=== PATIENT | female | born 1995 | race Caucasian/White ===

== ENCOUNTER 2022-05-19 12:17 | Emergency (ER) | payer OTHER, SELFPAY ==
[2022-05-19 12:47] VITALS: BP 127/73; PULSE 102; RESP 16; TEMP 37.2; O2SAT 98; BMI 27.4
[2022-05-19 15:49] VITALS: BP 113/65; PULSE 76; RESP 20; O2SAT 97
[2022-05-19 18:13] VITALS: BP 128/73; PULSE 69; RESP 20; O2SAT 98
--- NOTE | 2022-05-24 09:51 | ED.DIZZY ---
HPI - Dizziness General Chief Complaint: Dizziness Stated Complaint: Feeling faint, Left ABD pressure Time Seen by Provider: 05/19/22 12:29 Source: patient Mode of arrival: Ambulatory History of Present Illness HPI Narrative: 27-year-old female presenting with lightheadedness, left upper abdominal discomfort/pressure, and generalized malaise. Patient reports 2 episodes of feeling lightheaded and becoming near syncopal, however, patient did not lose consciousness. Symptoms have occurred over the last 2 days. No chest pain or shortness of breath, no lower abdominal pain. No known cardiac disease. No recent fevers. Related Data Allergies Allergy/AdvReac Type Severity Reaction Status Date / Time No Known Drug Allergies Allergy Verified 05/19/22 12:51 Patient History Social History Smoking Status: Never smoker Smoking Status: Never smoker alcohol intake frequency: 0-2 drinks per day Substance Use Type: marijuana Exam Narrative Exam Narrative: Vitals reviewed. Nursing note reviewed Constitutional: interactive HENT: Moist mucous membranes EYES: No scleral icterus NECK: no masses CV: Well perfused peripherally, no cyanosis present PULM: Unlabored respirations, symmetric chest rise ABD: Non-distended MS: No gross deformities, no asymmetric edema noted SKIN: Warm and dry. PSYCH: Appropriate affect NEURO: Follows simple commands, moves extremities, interactive with exam Initial Vital Signs Initial Vital Signs: Vital Signs Temperature 99.0 F 05/19/22 12:47 Pulse Rate 102 H 05/19/22 12:47 Respiratory Rate 16 05/19/22 12:47 Blood Pressure 127/73 05/19/22 12:47 Pulse Oximetry 98 05/19/22 12:47 Oxygen Delivery Method Room Air 05/19/22 12:47 MDM - Dizziness Lab Data Labs: Point of Care Testing Test Results Negative Urine Dip Bedside Urine Glucose Negative Bedside Urine Bilirubin - Negative Bedside Urine Ketone - Negative Urine Specific [place] 1.015 Bedside Urine Occult Blood - Negative Bedside Urine pH 8.0 Bedside Urine Protein - Negative Bedside Urine Urobilinogen - Negative Bedside Urine Nitrite - Negative Bedside Urine Leukocytes - Negative Esterase MDM Narrative Medical decision making narrative: 27-year-old female presenting with lightheadedness and without loss of consciousness, intermittent left upper abdominal pressure. On presentation, vital signs reassuring. Physical exam notable for a well-appearing 27-year-old female in no acute distress, no active symptoms on presentation to the emergency department. Patient with reassuring cardiopulmonary and neurologic exam. Initial concern for primary cardiac arrhythmia, dehydration, infectious etiology, electrolyte derangement, pulmonary embolism. Patient is well-appearing on presentation, no episodes of syncope or concerning features to suggest a primary cardiac arrhythmia. EKG without evidence of acute ischemia or significant arrhythmia on my interpretation. Given patient without known medical problems, patient well-appearing, no chest pain, shortness of breath, tachypnea, or hypoxemia, further evaluation for PE was deferred. Patient without fevers to suggest infectious etiology. Patient does not appear to be clinically dehydrated while in the emergency department. Discussed overall reassuring exam, plan for discharge and close outpatient follow up with patient's primary care provider. Return precautions were discussed. Discharge Plan Departure Patient Disposition: Home Clinical Impression: Near syncope Instructions: DI for Syncope in Adults (Fainting) Activity Restrictions/Additional Instructions: *You have been diagnosed with near syncope. *What to do: *Please follow up with your primary care provider in 2-3 days, call for an appointment. Let them know you were seen in the Emergency Department and that we ask that you be seen in follow up. We will electronically transmit a record of today's note if your PCP is in our system *If you do not have a primary care provider please contact the [facility] Resource line at [phone]. They will ask some questions about your medical history and help get you set up with a doctor in the community. *Return to Emergency Department if you should have any new, worsening or concerning symptoms, such as [fever greater than 101 F, shaking chills, worsening pain, persistent vomiting or other bothersome symptoms] Stand Alone Forms: Patient Portal/API
== END 2022-05-19 18:15 | disposition home or self-care (01) ==
PROVIDERS: Emergency Provider Emergency Medicine
DX: R55 Syncope and collapse (principal); R07.9 Chest pain, unspecified
CPT/HCPCS: 81003; 81025; 93005; 99282; 99283

== ENCOUNTER 2022-06-10 07:44 | Emergency (ER) | payer OTHER, SELFPAY ==
[2022-06-10] VITALS (11 sets, daily range): BP systolic 101–137; BP diastolic 55–73; PULSE 63–92; RESP 18–23; TEMP 36.8; O2SAT 98–100; BMI 26.6
--- NOTE | 2022-06-10 09:35 | ED.ABDPAIN ---
HPI - Abdominal Pain General Chief Complaint: Abdominal Pain Stated Complaint: ABD pain T-21 Time Seen by Provider: 06/10/22 09:08 Source: family Mode of arrival: Ambulatory History of Present Illness HPI narrative: Patient is a 27-year-old female who presents with ongoing abdominal issues. She was seen and evaluated here May 24 for near syncopal episode. At that time she reports that she ate a lot of vitamin she had pressure in her left upper abdomen with a near syncopal episode. She reports that her stomach just does not feel quite right, she keeps having pain and cramping move all over she reports that her bowel movements are necessarily normal but she had 1 yesterday. She is no nausea vomiting. She is eating drinking fine. No chest pain palpitations shortness of breath or other symptoms. Related Data Allergies Allergy/AdvReac Type Severity Reaction Status Date / Time No Known Drug Allergies Allergy Verified 05/19/22 12:51 Review of Systems Review of Systems ROS Unobtainable: All systems reviewed & are unremarkable except as noted in HPI and below Patient History Social History Smoking Status: Never smoker Smoking Status: Never smoker alcohol intake frequency: holidays/special occasions only Substance Use Type: marijuana Exam Initial Vital Signs Initial Vital Signs: Vital Signs Temperature 98.3 F 06/10/22 08:00 Pulse Rate 79 06/10/22 08:00 Respiratory Rate 18 06/10/22 08:00 Blood Pressure 132/73 06/10/22 08:00 Pulse Oximetry 100 06/10/22 08:00 Oxygen Delivery Method Room Air 06/10/22 08:00 GENERAL: Alert well-appearing 27-year-old female no acute distress and in no acute distress. HEENT: Head atraumatic,EOMI, pupils reactive, face symmetric, moist mucous membranes CARDIOVASCULAR: Regular rate and rhythm without murmurs, rubs or gallops. RESPIRATORY: Breath sounds equal bilaterally, no wheezes rales or rhonchi. ABDOMEN: Soft, nontender. Normoactive bowel sounds all 4 quadrants. No guarding or rebound. Negative Larsen's sign no distention EXTREMITIES: Normal range of motion, no clubbing or edema. Neurovascularly intact NEUROLOGICAL: Alert and oriented x4. SKIN: Warm, dry, no laceration, no petechiae, no rashes or lesions. Course Orders Ordered: ED Orders 06/10/22 09:30 Complete Blood Count AUTO DIFF Stat Comprehensive Metabolic Panel Stat Lipase Stat 06/10/22 09:38 Test Urine Stat Urine Microscopic Stat 06/10/22 09:52 CT abdomen pelvis w con Stat Discontinued Medications Ondansetron HCl (Ondansetron 4 Mg Odt) 4 mg PO NOW PRN PRN Reason: Nausea And Vomiting Ondansetron HCl (Ondansetron 4 Mg/2 Ml Inj) 4 mg IV NOW PRN PRN Reason: Nausea And Vomiting Vital Signs Vital signs: Vital Signs - 8 hr 06/10/22 08:00 06/10/22 09:28 06/10/22 09:30 Temperature 98.3 F Pulse Rate 79 84 92 H Respiratory Rate 18 Blood Pressure 132/73 Pulse Oximetry 100 99 100 Oxygen Delivery Method Room Air 06/10/22 10:00 06/10/22 10:30 06/10/22 10:40 Temperature Pulse Rate 78 64 80 Respiratory Rate 18 Blood Pressure 119/69 Pulse Oximetry 99 99 99 Oxygen Delivery Method 06/10/22 10:40 06/10/22 11:00 06/10/22 11:00 Temperature Pulse Rate 84 Respiratory Rate Blood Pressure 119/69 118/65 Pulse Oximetry 98 Oxygen Delivery Method Room Air 06/10/22 11:30 06/10/22 11:30 06/10/22 11:57 Temperature Pulse Rate 63 Respiratory Rate 23 Blood Pressure 101/55 L 137/72 Pulse Oximetry 99 Oxygen Delivery Method 06/10/22 11:57 06/10/22 12:00 06/10/22 12:00 Temperature Pulse Rate 75 88 Respiratory Rate Blood Pressure 107/58 L Pulse Oximetry 99 100 Oxygen Delivery Method 06/10/22 12:30 06/10/22 12:30 Temperature Pulse Rate 86 Respiratory Rate 20 Blood Pressure 108/71 Pulse Oximetry 100 Oxygen Delivery Method Room Air MDM - Abdominal Pain Lab Data 06/10/22 09:30 06/10/22 09:30 Labs: Lab Results 06/10/22 06/10/22 06/10/22 Range/Units 09:30 09:30 09:38 WBC 6.3 (4.5-11.0) X10^3/uL RBC 4.31 (4.0-5.2) X10^6/uL Hgb 12.6 (12.0-16.0) g/dL Hct 37.3 (36-46) % MCV 86.5 (80-100) fL MCH 29.3 (26-34) PG MCHC 33.9 (30-36) % RDW 12.8 (11.6-14.8) % Plt Count 222 (150-400) X10^3/uL Neut % (Auto) 57.3 (50-75) % Lymph % (Auto) 28.9 (25-40) % [place] % (Auto) 12.5 (3-14) % Eos % (Auto) 0.7 L (2-4) % Baso % (Auto) 0.6 (0-2) % Neut # (Auto) 3600 (1738-9836) /uL Lymph # (Auto) 1800 (9316-5668) /uL [place] # (Auto) 800 (0-900) /uL Eos # (Auto) 0 (0-450) /uL Baso # (Auto) 0 (0-100) /uL Sodium 139 (137-145) mmol/L Potassium 3.6 (3.4-5.1) mmol/L Chloride 103 (98-107) mmol/L Carbon Dioxide 25 (22-32) mmol/L BUN 5 L (7-17) mg/dL Creatinine 0.56 (0.52-1.04) mg/dL Estimated GFR > 60 (>60) mL/min BUN/Creatinine Ratio 8.9 (6-22) Glucose 80 (70-100) mg/dL Calcium 9.3 (8.4-10.2) mg/dL Total Bilirubin 1.1 (0.2-1.3) mg/dL AST 20 (14-36) IU/L ALT 16 (<35) IU/L Alkaline Phosphatase 54 (38-126) U/L Total Protein 8.3 H (6.3-8.2) g/dL Albumin 4.7 (3.5-5.0) g/dL Globulin 3.6 (1.7-4.1) g/dL Albumin/Globulin Ratio 1.3 (1.0-2.8) Lipase 60 (23-300) U/L Urine RBC (0-5/HPF) Urine WBC (0-5/HPF) Ur Squamous Epith Cells (0-5/HPF) Urine Bacteria (None) Urine Mucus (Negative) Ur Culture Indicated? Urine Test Negative (Negative) 06/10/22 Range/Units 09:38 WBC (4.5-11.0) X10^3/uL RBC (4.0-5.2) X10^6/uL Hgb (12.0-16.0) g/dL Hct (36-46) % MCV (80-100) fL MCH (26-34) PG MCHC (30-36) % RDW (11.6-14.8) % Plt Count (150-400) X10^3/uL Neut % (Auto) (50-75) % Lymph % (Auto) (25-40) % [place] % (Auto) (3-14) % Eos % (Auto) (2-4) % Baso % (Auto) (0-2) % Neut # (Auto) (9531-1945) /uL Lymph # (Auto) (3269-2952) /uL [place] # (Auto) (0-900) /uL Eos # (Auto) (0-450) /uL Baso # (Auto) (0-100) /uL Sodium (137-145) mmol/L Potassium (3.4-5.1) mmol/L Chloride (98-107) mmol/L Carbon Dioxide (22-32) mmol/L BUN (7-17) mg/dL Creatinine (0.52-1.04) mg/dL Estimated GFR (>60) mL/min BUN/Creatinine Ratio (6-22) Glucose (70-100) mg/dL Calcium (8.4-10.2) mg/dL Total Bilirubin (0.2-1.3) mg/dL AST (14-36) IU/L ALT (<35) IU/L Alkaline Phosphatase (38-126) U/L Total Protein (6.3-8.2) g/dL Albumin (3.5-5.0) g/dL Globulin (1.7-4.1) g/dL Albumin/Globulin Ratio (1.0-2.8) Lipase (23-300) U/L Urine RBC None seen (0-5/HPF) Urine WBC 0-1/hpf (0-5/HPF) Ur Squamous Epith Cells 1-5 /hpf (0-5/HPF) Urine Bacteria None seen (None) Urine Mucus 1+ H (Negative) Ur Culture Indicated? Cult not indicated Urine Test (Negative) Point of care testing: Urine Dip Bedside Urine Glucose Negative Bedside Urine Bilirubin - Negative Bedside Urine Ketone +++ 80 Urine Specific [place] 1.020 Bedside Urine Occult Blood - Negative Bedside Urine pH 6.0 Bedside Urine Protein - Negative Bedside Urine Urobilinogen - Negative Bedside Urine Nitrite - Negative Bedside Urine Leukocytes - Negative Esterase Imaging Data CT scan - abdomen/pelvis: Radiologist's Impression: PROCEDURE:? CT ABDOMEN PELVIS W CON ? INDICATIONS:? ab pain ? TECHNIQUE:? After the administration of oral and IV contrast, axial sections were acquired from the lung bases to the pubic symphysis.? Coronal and sagittal reformats were performed.? For radiation dose reduction, the following was used:? automated exposure control, adjustment of mA and/or kV according to patient size. ? COMPARISON:? None. ? FINDINGS:? Image quality:? Excellent.? ? Lung bases:? Unremarkable.? ? Heart:? No significant findings. ? ? ABDOMEN: Liver:? There is a 5 mm indeterminate Hypaque hypodensity in the right hepatic lobe, most likely a cyst.? ? Gallbladder:? Unremarkable.? ? Biliary ducts:? Unremarkable.? ? Pancreas:? Unremarkable.? ? Spleen:? Unremarkable.? ? Adrenal Glands:? Unremarkable.? ? Kidneys and Ureters:? Unremarkable.? ? ? Stomach and Bowel:? Stomach, small bowel loops, and colon are normal in caliber.? Mild diverticulosis without diverticulitis. Peritoneum:? No abnormal intraperitoneal fluid.? No free air.? ? Ventral Wall: ? No hernia.? Abdominal Nodes:? No retroperitoneal or mesenteric adenopathy by size criteria.? Vessels:? Aorta and inferior vena cava are normal in size.? ? PELVIS: Pelvic Organs:? Uterus and ovaries are grossly unremarkable.? There is a small amount of free fluid in the cul-de-sac.? Prominent gonadal veins are seen in the left pelvis. Bladder:? Unremarkable.? ? Pelvic Nodes: No enlarged lymph nodes.? Miscellaneous: No inguinal hernias are seen. ? ? ? Bones:? Unremarkable.? IMPRESSION:? ? 1. No acute inflammatory process in abdomen or pelvis. 2. A few colonic diverticula are present.? No diverticulitis. 3. Prominent gonadal veins in the left pelvis, suggesting pelvic congestion syndrome. 4. A small amount of free fluid in pelvis, most likely physiological ? ? ? Dictated by: Kelly Rico M.D. on 06/10/2022 at 12:02 [facility] Narrative Medical decision making narrative: Patient is a healthy 27-year-old female who presents with a ongoing abnormal abdominal pain. Blood work is overall reassuring exam is actually fairly benign however this is a repeat visit. CT abdomen pelvis does not show any abnormality. Urinalysis negative. She is not requiring any pain medicine or nausea medicine. At this time I recommend that she have outpatient follow-up possible GI consultation possible colonoscopy. CT does not show any sign of obstruction diverticulitis cholelithiasis nephrolithiasis or other abdominal etiology. She possibly does have pelvic congestion syndrome which can be followed up with investigative reporter Discharge Plan Departure Patient Disposition: Home Clinical Impression: Abdominal pain, Pelvic congestion Instructions: Acute Abdominal Pain, DI for Abdominal Pain-Adult Activity Restrictions/Additional Instructions: *You have been diagnosed with abdominal pain, pelvic congestion syndrome *What to do: At this time your blood work and CT are overall reassuring. You may need to talk with investigative reporter about pelvic congestion syndrome you have some large veins in the left-sided pelvis. I do not think that this is what is causing her symptoms today. *Continue to take medications as directed Tylenol Motrin as directed if needed for pain *Follow up with your primary care provider in 2-3 days or call [phone] *Return to ER if you should have increasing pain vomiting fever or any new, worsening or concerning symptoms Referrals: Moose,MD Carlos [Primary Care Provider] - Stand Alone Forms: Patient Portal/API
[2022-06-10 09:38] LABS: Add Manual Diff / Slide Review NO; Basophils Absolute Auto 0 /uL (0-100); Basophils Percent Auto 0.6 % (0-2); Eosinophils Absolute Auto 0 /uL (0-450); Eosinophils Percent Auto 0.7 % (2-4); Hematocrit 37.3 % (36-46); Hemoglobin 12.6 g/dL (12.0-16.0); Lymphocytes Absolute Auto 1800 /uL (1100-4500); Lymphocytes Percent Auto 28.9 % (25-40); Mean Corpuscular HGB Conc 33.9 % (30-36); Mean Corpuscular Hemoglobin 29.3 PG (26-34); Mean Corpuscular Volume 86.5 fL (80-100); Monocytes Absolute Auto 800 /uL (0-900); Monocytes Percent Auto 12.5 % (3-14); Neutrophils Absolute Auto 3600 /uL (1500-7000); Neutrophils Percent Auto 57.3 % (50-75); Platelet Count 222 X10^3/uL (150-400); Red Blood Cell Count 4.31 X10^6/uL (4.0-5.2); Red Cell Distribution Width 12.8 % (11.6-14.8); White Blood Cell Count 6.3 X10^3/uL (4.5-11.0)
--- NOTE | 2022-06-10 09:52 | DI.CT.S_ITS ---
PROCEDURE: CT ABDOMEN PELVIS W CON INDICATIONS: ab pain TECHNIQUE: After the administration of oral and IV contrast, axial sections were acquired from the lung bases to the pubic symphysis. Coronal and sagittal reformats were performed. For radiation dose reduction, the following was used: automated exposure control, adjustment of mA and/or kV according to patient size. COMPARISON: None. FINDINGS: Image quality: Excellent. Lung bases: Unremarkable. Heart: No significant findings. ABDOMEN: Liver: There is a 5 mm indeterminate Hypaque hypodensity in the right hepatic lobe, most likely a cyst. Gallbladder: Unremarkable. Biliary ducts: Unremarkable. Pancreas: Unremarkable. Spleen: Unremarkable. Adrenal Glands: Unremarkable. Kidneys and Ureters: Unremarkable. Stomach and Bowel: Stomach, small bowel loops, and colon are normal in caliber. Mild diverticulosis without diverticulitis. Peritoneum: No abnormal intraperitoneal fluid. No free air. Ventral Wall: No hernia. Abdominal Nodes: No retroperitoneal or mesenteric adenopathy by size criteria. Vessels: Aorta and inferior vena cava are normal in size. PELVIS: Pelvic Organs: Uterus and ovaries are grossly unremarkable. There is a small amount of free fluid in the cul-de-sac. Prominent gonadal veins are seen in the left pelvis. Bladder: Unremarkable. Pelvic Nodes: No enlarged lymph nodes. Miscellaneous: No inguinal hernias are seen. Bones: Unremarkable. IMPRESSION: 1. No acute inflammatory process in abdomen or pelvis. 2. A few colonic diverticula are present. No diverticulitis. 3. Prominent gonadal veins in the left pelvis, suggesting pelvic congestion syndrome. 4. A small amount of free fluid in pelvis, most likely physiological Dictated by: Kelly Rico M.D. on 06/10/2022 at 12:02 Approved by: Kelly Rico M.D. on 06/10/2022 at 12:08
[2022-06-10 09:59] LABS: Alanine Aminotransferase 16 IU/L (<35); Albumin 4.7 g/dL (3.5-5.0); Albumin Globulin Ratio 1.3 (1.0-2.8); Alkaline Phosphatase 54 U/L (38-126); Aspartate Aminotransferase 20 IU/L (14-36); BUN Creatinine Ratio 8.9 (6-22); Bilirubin Total 1.1 mg/dL (0.2-1.3); Blood Urea Nitrogen 5 mg/dL (7-17); Calcium 9.3 mg/dL (8.4-10.2); Carbon Dioxide 25 mmol/L (22-32); Chloride 103 mmol/L (98-107); Estimated Glomerular Filt Rate > 60 mL/min (>60); Globulin 3.6 g/dL (1.7-4.1); Glucose 80 mg/dL (70-100); HEMOLYSIS < 15 (0-50); Lipase 60 U/L (23-300); Potassium 3.6 mmol/L (3.4-5.1); Sodium 139 mmol/L (137-145); Total Protein 8.3 g/dL (6.3-8.2)
[2022-06-10 10:35] LABS: Pregnancy Test Urine Negative (Negative)
[2022-06-10 10:46] LABS: Bacteria Urine None Seen; RBC Urine None Seen (0-5/HPF); Squamous Epithelial Cell Urine 1-5 /HPF (0-5/HPF); WBC Urine 0-1/HPF (0-5/HPF)
[2022-06-10 10:47] LABS: Culture Indicated Urine Cult Not Indicated; Mucus Urine 1+ (Negative)
== END 2022-06-10 12:37 | disposition home or self-care (01) ==
PROVIDERS: Emergency Provider Emergency Medicine
DX: R10.9 Unspecified abdominal pain (principal); N94.89 Other specified conditions associated with female genital organs and menstrual cycle; R55 Syncope and collapse
CPT/HCPCS: 36415; 74177; 80053; 81003; 81015; 81025; 83690; 85025; 99284

== ENCOUNTER → 2022-09-30 11:56 | Outpatient (CLI) | payer OTHER, SELFPAY ==
--- NOTE | 2022-09-30 | DI.US.S_ITS ---
PROCEDURE: US ABDOMEN COMPLETE INDICATIONS: DIFFUSE ABDOMINAL PAIN TECHNIQUE: Real-time scanning was performed of the abdominal and retroperitoneal organs, with image documentation. COMPARISON: [facility], CT, CT ABDOMEN PELVIS W CON, 06/10/2022, 11:51. FINDINGS: Liver: Liver is normal in size and homogeneous in echotexture. Gallbladder: No findings of gallstones or sludge are seen. The gallbladder wall is not thickened, measuring 3 mm or less. No specific pericholecystic fluid is seen. The sonographic Larsen sign is negative. Biliary ducts: Intrahepatic bile ducts are non-dilated. Extrahepatic bile duct caliber measures 4 mm. Normal is 6-7 mm or less in diameter, or 10 mm or less post-cholecystectomy. Pancreas: Visualized portions of the pancreas are sonographically normal. Spleen: Spleen is normal in size and homogeneous in echotexture. Kidneys: Kidneys are normal in size and echotexture. Right kidney measures 12.2 cm long; left kidney measures 12.3 cm long. No hydronephrosis or nephrolithiasis. No solid masses. Aorta: Visualized aorta is normal in caliber at less than 3 cm. Iliacs: Proximal common iliac arteries are normal in caliber at less than 2.5 cm. IVC: Intrahepatic inferior vena cava is patent. Miscellaneous: No free abdominal fluid. IMPRESSION: The gallbladder demonstrates a normal sonographic appearance. No biliary dilatation is seen. No imaging explanation is found for this patient's presenting symptoms. Dictated by: Cole Levi M.D. on 09/30/2022 at 11:32 Approved by: Cole Levi M.D. on 09/30/2022 at 11:35
== END ==
PROVIDERS: Referring Provider Nurse Practitioner Primary Care; Visit Provider Nurse Practitioner Primary Care
DX: R10.9 Unspecified abdominal pain (principal)
CPT/HCPCS: 76700

== ENCOUNTER → 2022-11-22 13:55 | Outpatient (CLI) | payer OTHER, SELFPAY ==
--- NOTE | 2022-11-22 | DI.US.S_ITS ---
PROCEDURE: US PELVIC COMPLETE INDICATIONS: Pelvic and perineal pain TECHNIQUE: Real-time scanning was performed of the pelvic organs, with image documentation. Additional endovaginal scanning was necessary due to incomplete visualization of the adnexal and endometrial structures by transabdominal scanning. COMPARISON: None. FINDINGS: Uterus: Uterus is anteverted and normal in size at 7.9 x 3.5 x 5.0 cm. The myometrium is homogeneous. The endometrium measures 12.9 mm combined thickness. Ovaries: The right ovary measures 3.1 x 2.7 x 2.7 cm, with a calculated ovarian volume of 11.8 cc. The left ovary measures 2.8 x 1.6 x 1.4 cm, with a calculated ovarian volume of 3.3 cc. Simple right ovarian focus of decreased echogenicity is present measuring 2.2 x 2.0 x 2.4 cm. Other: No pathologic free abdominal or pelvic fluid. IMPRESSION: Simple left ovarian cyst. We strive to produce accurate, complete, and clear reports of imaging services. To assist us in improving patient care, this report was composed using standard report templates and voice recognition software. Therefore, it may contain abnormal punctuation, insertions and/or omissions. Occasional wrong-word or sound-alike substitutions may occur. Though we review the report and make efforts to correct it, we do recommend that the report be read carefully in proper context to recognize any text inaccuracies. Dictated by: Ann Triplett M.D. on 11/22/2022 at 17:02 Approved by: Ann Triplett M.D. on 11/22/2022 at 17:03
== END ==
PROVIDERS: Referring Provider Nurse Practitioner Primary Care; Visit Provider Nurse Practitioner Primary Care
DX: N83.292 Other ovarian cyst, left side (principal); R10.2 Pelvic and perineal pain
CPT/HCPCS: 76830; 76856; 93976